=== PATIENT | female | born 1950 | race Caucasian/White ===

== ENCOUNTER 2021-03-10 14:38 | Inpatient (IN) ==
[~2021-03-10 14:38] MED LIST: KETAMINE 50 MG/ML ML IV PRN; MIDAZOLAM 2 MG/2 ML VIAL IV SCH; PROPOFOL 200 MG/20 ML VIAL IV SCH
[2021-03-10] MEDS ORDERED: 0.9 % SODIUM CHLORIDE 500 ML IV ONE (16:59)
[2021-03-10] MEDS ORDERED: 0.9 % SODIUM CHLORIDE 500 ML IV SCH (17:00)
[2021-03-10] MEDS ORDERED: ONDANSETRON 4 MG/2 ML VIAL IV PRN (17:35)
--- NOTE | 2021-03-10 17:35 | General Surg History&Physical ---
HPI History of Present Illness Patient information: Note initiated : 03/10/21 at 5:30 pm Service Date, if different from initiated Date: [] Patient: Nika Ndiaye a 70 y/o F admitted on for Colonoscopy. Chief Complaint: Diverticulitis History of present illness: Ms. Ndiaye is a 70 year old F who has a past medical history of diverticulitis. She has been treated as an outpatient multiple times with minocycline after being seen by her primary care doc and diagnosed with diverticulitis. She reports that she had intermittent left lower quadrant abdominal pain for approximately 4 years before being seen by her primary care physician who diagnosed her with diverticulitis. She recently was seen in urgent care 3 weeks ago and diagnosed with diverticulitis and underwent a 10-day course of antibiotics. She reports the pain is improved, however she still is having some mucus type stools which she gets when she has diverticulitis. She was seen by Dr. Dodge today for colonoscopy, on colonoscopy she was found to have active diverticulitis with very tight sigmoid colon concerning for diverticular stricture. I was asked to see the patient for possible colectomy versus admission. Review of Systems Review of systems: All systems are reviewed, negative other than above PFSH PFSH All Active Problems Stress (Acute) Constipation (Acute) Diverticulitis (Acute) Abnormal stool caliber (Acute) Stool mucus (Acute) Bronchitis (Acute) Body aches (Acute) Fever (Acute) Medicare annual wellness visit, subsequent (Acute) History of colonoscopy (Chronic 08/03/13) History of bunionectomy (Chronic ~1995) History of hysterectomy (Chronic ~1986) History of tonsillectomy (Chronic ~1955) Seasonal allergies (Chronic) Mild asthma (Chronic) Osteoarthritis (Chronic) Fatigue (Chronic) Low back pain (Chronic) GERD (gastroesophageal reflux disease) (Chronic) Anxiety associated with depression (Chronic) Diverticular disease (Chronic) Hypertension, benign (Chronic) Sinusitis (Chronic) Post herpetic neuralgia (Chronic) Medical History Anxiety associated with depression Diverticular disease Fatigue GERD (gastroesophageal reflux disease) Hypertension, benign Low back pain Mild asthma Osteoarthritis Seasonal allergies Surgical History History of bunionectomy (~1995) nasir History of colonoscopy (08/03/13) History of hysterectomy (~1986) History of tonsillectomy (~1955) Family History Mother Heart disease Bowel cancer Parathyroid abnormality Father , age 89 from natural causes HTN (hypertension) Heart disease Osteoporosis Grandmother Heart disease maternal Stroke paternal Asthma paternal Rheumatoid arthritis paternal Grandfather Heart disease maternal HTN (hypertension) paternal Sister Diabetes mellitus Seizures Social History household members: spouse marital status: occupational status: retired other: Enjoys singing, piano & sewing. alcohol intake frequency: does not drink substance use type: does not use roni/christian: Presybeterian additional history: Has 2 Sisters, 5 children and 12 grandchildren. 1 son lives with her and her . MEDS/ALLERGIES Home Medications and Allergies Home Medications Medication Instructions Recorded Confirmed Type loratadine 10 mg tablet 10 mg PO QDAY PRN 07/31/19 03/10/21 History Allergies Allergy/AdvReac Type Severity Reaction Status Date / Time cephalexin [From Keflex] Allergy Intermediate rash Verified 03/10/21 15:45 Erythromycin Base Allergy Intermediate rash Verified 03/10/21 15:45 Cephalosporins Allergy Unknown Unknown Verified 03/10/21 15:45 sulfamethoxazole Allergy Unknown Nausea Verified 03/10/21 15:45 [From Bactrim] trimethoprim [From Bactrim] Allergy Unknown Nausea Verified 03/10/21 15:45 illosone Allergy Unknown Rash Uncoded 02/20/21 15:04 Physical Examination Vital Signs Vital signs: Temp Pulse Resp BP Pulse Ox 98.2 F 81 20 155/68 97 03/10/21 16:50 03/10/21 17:20 03/10/21 17:20 03/10/21 17:20 03/10/21 17:20 General physical appearance General physical exam: well developed, well nourished and no distress Eyes Eye exam: PERRL and normal ocular movement ENT ENT exam: normal pinna, normal nares, normal mucosa, no hearing loss and no congestion Head Head exam IM: Present atraumatic and normocephalic Neck Neck exam: no masses, no bruits, trachea midline, no lymphadenopathy and no veno us distension Cardiovascular Cardiovascular exam IM: Present normal rate and rhythm Respiratory Respiratory exam: normal expansion, normal respiratory effort, clear to percussion and clear to auscultation Abdomen Abdomen: Present soft, non tender and bowel sounds; Absent masses, guarding, rigid and rebound Hernia: Present none Genitourinary Genitourinary (Female): Present normal external genitalia Rectum Rectum: Present normal sphincter tone, no hemorrhoids, no tenderness, no masses and no bleeding Integumentary Integumentary: Present no rash, no growths and no abnormal pigmentation Neurologic Neurologic: Present normal coordination and normal sensation Musculoskeletal Musculoskeletal: Present normal gait and normal posture Psychiatric Psychiatric: Present oriented to time, oriented to person, oriented to place, speech is normal and memory intact Results Labs Labs: All other labs normal. A/P Assessment and plan (1) Diverticulitis: Status: Acute (2) Stool mucus: Status: Acute (3) Anxiety associated with depression: Status: Chronic Narrative A/P Narrative: This is a pleasant 70-year-old female with active diverticulitis which was found on colonoscopy today. There is also concern for diverticular stricture. Risk, benefits, alternatives to treatment including urgent surgery with colostomy versus conservative management with antibiotics. She verbalizes understanding of these options, all of her questions are answered. At this time she does not desire to undergo surgery, she is desirous of an attempt at conservative management with a possible elective sigmoid colectomy in the future. Plan: Admit to the hospital, IV antibiotics, n.p.o. and bowel rest at this time. We will continue to follow, if she appears to be obstructed or her diverticulitis does not resolve we will revisit urgent surgery. Time Spent With Patient Time: Total time spent is greater than 50% in coordination of care (as documented) at patient's floor/unit and/or counseling patient:
[2021-03-10] MEDS: DEXTROSE 5%-1/2NS 1,000 ML IV SCH (18:03)
[2021-03-10] MEDS: metroNIDAZOLE 500 MG/100 ML BAG IV SCH (18:48)
[2021-03-10] MEDS: LEVOFLOXACIN 750 MG/150 ML BAG IV SCH (20:05)
[2021-03-10] MEDS: DOCUSATE SODIUM 100 MG CAPSULE PO SCH ×2 (20:08→21:32)
[2021-03-10] MEDS ORDERED: OMEPRAZOLE 20 MG CAPSULE PO ONE (21:30)
[2021-03-10] MEDS: OMEPRAZOLE 20 MG CAPSULE PO SCH (21:31)
[2021-03-11] MEDS: metroNIDAZOLE 500 MG/100 ML BAG IV SCH ×3 (00:01→15:15)
[2021-03-11] MEDS: DEXTROSE 5%-1/2NS 1,000 ML IV SCH ×3 (06:11→17:32)
[2021-03-11 07:13] LABS: Basophils # (Auto) 0.03 K/mcL (0.00-0.20); Basophils % (Auto) 0.8 % (0.0-2.0); Eosinophils # (Auto) 0.12 K/mcL (0.00-0.70); Eosinophils % (Auto) 3.1 % (0.0-7.0); Hematocrit 42.8 % (36.0-48.0); Hemoglobin 14.2 g/dL (12.0-15.0); Lymphocytes # (Auto) 0.74 K/mcL (1.50-4.80); Lymphocytes % (Auto) 19.1 % (15.0-49.0); Mean Cell Volume 96.6 fL (80.0-100.0); Mean Corpuscular HGB Conc 33.2 g/dL (31.0-36.0); Mean Platelet Volume 9.7 fL (7.4-10.4); Monocytes # (Auto) 0.41 K/mcL (0.10-0.90); Monocytes % (Auto) 10.6 % (1.0-12.0); Neutrophils % (Auto) 66.4 % (38.0-78.0); Platelet Count 126 K/mcL (140-440); RBC 4.43 M/mcL (4.00-5.20); Red Cell Distribution Width 12.2 % (11.5-14.5); WBC 3.9 K/mcL (4.5-11.0)
[2021-03-11 07:46] LABS: Blood Urea Nitrogen 8 mg/dL (8-23); Calcium 8.3 mg/dL (8.6-10.4); Carbon Dioxide 23 mmol/L (22-30); Chloride 105 mmol/L (96-108); Glomerular Filtration Rate 73; Glucose 117 mg/dL (70-105)
[2021-03-11] MEDS: OMEPRAZOLE 20 MG CAPSULE PO SCH ×2 (08:40→17:32)
[2021-03-11] MEDS: DOCUSATE SODIUM 100 MG CAPSULE PO SCH ×2 (08:40→21:28)
--- NOTE | 2021-03-11 09:09 | Colonoscopy Procedure Note ---
Colonoscopy Procedure Notes Procedure Information Patient information: Note initiated : 03/11/21 at 9:07 am Service Date: 03/10/21 Patient: Nika Ndiaye 70 y/o F admitted on 03/10/21 for Colonoscopy. Pre-op diagnosis general: Change in bowel habit. Diverticulitis. Post-op diagnosis general: Diverticulitis with sigmoid stricture. Procedure: Colonoscopy with Bx Procedure narrative: The procedure, alternatives and risks were discussed with the patient and the patient's questions were answered. With endoscopist- administered IV sedation, the Olympus colonoscope was introduced into the rectum and advanced to the cecum. Ileocecal valve was identified, and intubated. Special effort was made to examine as much of the terminal ileum as possible. At least 30 to 40 cm of the terminal ileum were examined and were normal. At the sigmoid colon, there was an erythematous fold; this was biospied. There is a fixed sigmoid loop with a diverticular stricture that was difficult to travesre. The colon otherwise appeared normal. Assessment: Diverticulitis with sigmoid stricture. We will obtain surgical consultation.
[2021-03-11] MEDS: LEVOFLOXACIN 750 MG/150 ML BAG IV SCH (10:45)
--- NOTE | 2021-03-11 13:38 | General Surgery Progress Note ---
SUBJECTIVE Subjective Patient information: Note initiated : 03/11/21 at 1:36 pm Service Date, if different from initiated Date: [] Patient: Nika Ndiaye 70 y/o F admitted on 03/10/21 for Colonoscopy. Chief Complaint: [] Interval history: Patient feels much better today, having gas and bowel movement. No left lower quadrant abdominal pain. Constitutional Vitals: Vital Signs Temp Pulse Resp BP Pulse Ox 98.4 F 66 18 140/70 97 03/11/21 12:00 03/11/21 12:00 03/11/21 12:00 03/11/21 12:00 03/11/21 12:00 Period Temp Pulse Resp BP Sys/Aguilar Pulse Ox Last 24 Hr 97.7 F-98.6 F 61-96 15-22 126-166/57-88 95-100 Intake and Output 03/10/21 03/11/21 03/11/21 21:59 05:59 13:59 Intake Total 600 1250 100 Output Total 950 600 Balance 600 300 -500 Weight 205 lb 1.6 oz Intake & Output: Intake & Output 03/10/21 03/11/21 03/11/21 21:59 05:59 13:59 Intake Total 600 1250 100 Output Total 950 600 Balance 600 300 -500 Weight 205 lb 1.6 oz Intake: IV 600 1250 100 Sodium Chloride 0.9% 500 ml @ 500 Wide Open IV BOLUS ONE Rx#: [id number] Dextrose 5%-1/2Ns IV Solution 1 1000 ,000 ml @ 125 mls/hr IV .Q8H GERALD Rx#:[id number] Oral 0 Output: Void Amount 950 600 Other: Urine Appearance Clear Urine Color Bright Yellow Straw Urine Odor Normal Stool Color Brown Stool Consistency Liquid Loose # Voids 1 # Bowel Movements 1 # of times incontinent of 1 Bowels General appearance: cooperative and no acute distress GI/Abdominal GI/Abdominal exam: Present soft; Absent distended and tenderness A/P Narrative A/P Narrative: Acute diverticulitis, much improved. Possible diverticular stricture, however no obstructive symptoms at this time. Will advance diet as tolerated, start p.o. antibiotics. Plan: Anticipate discharge in the a.m., follow-up as an outpatient to schedule elective sigmoid colectomy. Time Spent With Patient Time: Total time spent is greater than 50% in coordination of care (as documented) at patient's floor/unit and/or counseling patient:
[2021-03-11] MEDS ORDERED: LEVOFLOXACIN 750 MG/150 ML BAG IV SCH (13:39)
[2021-03-11] MEDS: metroNIDAZOLE 500 MG TABLET PO SCH ×2 (15:15→21:29)
[2021-03-12] MEDS: DEXTROSE 5%-1/2NS 1,000 ML IV SCH ×2 (01:34→09:51)
[2021-03-12] MEDS: metroNIDAZOLE 500 MG TABLET PO SCH (06:02)
[2021-03-12] MEDS: OMEPRAZOLE 20 MG CAPSULE PO SCH (07:42)
[2021-03-12] MEDS: DOCUSATE SODIUM 100 MG CAPSULE PO SCH (08:50)
[2021-03-12] MEDS ORDERED: LEVOFLOXACIN 750 MG TABLET PO SCH (09:00)
--- NOTE | 2021-03-12 09:04 | Discharge Summary ---
Discharge Provider Provider Patient information: Note initiated : 03/12/21 at 9:03 am Service Date, if different from initiated Date: [] Patient: Nika Ndiaye 70 y/o F admitted on 03/10/21 for Colonoscopy. Chief Complaint: [] Date of admission: 03/10/21 17:50 Discharge date: 03/12/21 Primary care physician: Denton Magdaleno MD COURSE Hospital Course Hospital course: This is a pleasant 70-year-old female who underwent a screening colonoscopy by Dr. Dodge 2 days ago. On colonoscopy large amount of inflammation was identified in the sigmoid colon and concern for a diverticular stricture. Patient was admitted, treated for acute diverticulitis. She has normal bowel movements, has no further left lower quadrant abdominal pain, is tolerating a regular diet. There is no indication for urgent surgical intervention at this time as the there are no obstructive symptoms. Patient will be discharged home, follow-up with me in clinic after a full course of p.o. antibiotics. At that time we will discuss possible outpatient surgical interventions. Discharge diagnosis: Acute diverticulitis, diverticular stricture Time Spent with Patient Time attestation: Total time spent providing and/or coordinating discharge services: Physical Examination Vital Signs Vital signs: Temp Pulse Resp BP Pulse Ox 97.8 F 72 18 144/76 97 03/12/21 07:54 03/12/21 07:54 03/12/21 07:54 03/12/21 07:54 03/12/21 07:54 Discharge Plan Patient/Caregiver Discharge Instructions Activity: increase activity as tolerated Diet: Regular Diet and High Fiber Activity Restrictions/Additional Instructions: Low residual diet for the next 2 to 3 weeks. Follow-up with me in clinic in 2 weeks. Prescriptions: New metronidazole 500 mg Tablet 500 mg PO Q8 8 Days Qty: 24 RF: 0 levofloxacin 750 mg Tablet 750 mg PO DAILY 8 Days RF: 0 Continued loratadine [Claritin] 10 mg tablet 10 mg PO QDAY PRN (Reason: Allergic Symptoms) RF: 0 Follow Up Plan Follow up with: Mehrdad Perry MD [Physician] - Patient Disposition: Home, Self-Care Discharge Orders: Discharge Order (Routine); Ordered 03/12/21 Ordered By: Mehrdad ePrry Pending Pending Pending: Diet Low Fiber (Low residue) Diet Start TueMar 11 1022 Docusate Sodium (Docusate Sodium 100 Mg Capsule) 100 mg PO BID [facility] Last Admin: 03/12/21 08:50 Dose: Not Given Documented by: Admin: 03/11/21 21:28 Dose: 100 mg Documented by: Admin: 03/11/21 08:40 Dose: Not Given Documented by: Admin: 03/10/21 21:32 Dose: 100 mg Documented by: CHAZ Dextrose/Sodium Chloride (Dextrose 5%-1/2ns Iv Solution) 1,000 mls @ 125 mls/hr IV .Q8H [facility] Last Admin: 03/12/21 01:34 Dose: 125 mls/hr Documented by: Infusion: 03/12/21 01:32 Dose: 125 mls/hr Documented by: Admin: 03/11/21 17:32 Dose: 125 mls/hr Documented by: Infusion: 03/11/21 14:11 Dose: 125 mls/hr Documented by: Admin: 03/11/21 10:54 Dose: Not Given Documented by: Admin: 03/11/21 06:11 Dose: 125 mls/hr Documented by: Infusion: 03/11/21 02:03 Dose: 0 mls/hr Documented by: Admin: 03/10/21 18:03 Dose: 125 mls/hr Documented by: VINCENT Levofloxacin (Levofloxacin 750 Mg Tablet) 750 mg PO DAILY [facility]; Protocol Last Admin: 03/12/21 08:39 Dose: 750 mg Documented by: RUBENS Metronidazole (Metronidazole 500 Mg Tablet) 500 mg PO Q8 [facility]; Protocol Last Admin: 03/12/21 06:02 Dose: 500 mg Documented by: Admin: 03/11/21 21:29 Dose: 500 mg Documented by: Admin: 03/11/21 15:15 Dose: 500 mg Documented by: SUDHA Omeprazole (Omeprazole 20 Mg Capsule) 20 mg PO BIDAC [facility] Last Admin: 03/12/21 07:42 Dose: 20 mg Documented by: Admin: 03/11/21 17:32 Dose: 20 mg Documented by: Admin: 03/11/21 08:40 Dose: Not Given Documented by: Admin: 03/10/21 21:31 Dose: 20 mg Documented by: CHAZ Shift Summary 03/12/21 02:03 Shift Summary by Suzie Barry Diagnosis: Medical status for diverticulitis Brief history of present illness: Dr. Dodge completed colonoscopy, receiving ABO. Dr. Dodge looking for place where laparoscopic colectomy can be done if needed. Orientation: A&Ox4 Oxygen/Airway needs: RA Ambulation status: Up ad doug in room. SBA in hallway. Voiding: Bathroom. One soft formed pebble/BM tonight. Passing flatus. IV access: 22g IV to R AC infusing D5 1/2 NS at 125mls/hr. Tubes/drains: Pain: 2/10 pain to left shoulder, able to relieve with movement/ambulation. Wounds: Skin intact. Discharge plans: CM/Cardiac Rhythm (if applicable): Alarms (if applicable): Drips (if applicable): Ventilation (if applicable): Additional Comments: Wishes to be DNR, needs order placed. VSS on RA, afebrile. No N/V/D tonight. Low residue diet. Receiving Flagyl and Levaquin. Hx. HTN, GERD, arthritis, hiatal hernia, reflux. Tolerated ambulation in hallway well. 100% dinner meal taken. Initialized on 03/12/21 02:03 - END OF NOTE
--- NOTE | 2021-03-12 12:17 | Surgical Pathology Report ---
Histology Microscopic Diagnosis Specimen A- COLON, SIGMOID, BIOPSY: --- POLYPOID MUCOSA WITH MILD MIXED, NON-SPECIFIC INFLAMMATION AND REACTIVE CHANGE. --- NO ACTIVE INFLAMMATION OR ADENOMATOUS CHANGE IDENTIFIED. (ACP) Clinical History Changes in bowel habits. Procedural Impression Diverticulosis. Gross Description Received in formalin labeled sigmoid colon biopsy, are three dimas-verde tissue fragments from 0.3 to 0.4 cm. Totally submitted in one cassette. ([facility]) Electronically Signed Faustino Johnston MD, FCAP Electronically Signed 03/12/2021 12:16
== END 2021-03-12 12:55 | disposition home or self-care (01) | DRG 392 ==
LOC: SSSU 14:38 → MEDSUR 17:50
PROVIDERS: ADMIT Surgery; ATTEND Surgery